=== PATIENT | female | born 1935 | race Two or more races ===

== ENCOUNTER 2017-05-28 13:31 | Outpatient (CLI) | payer OTHER ==
[~2017-05-28 13:31] MED LIST: AVAPRO300 MG; CATAPRES0.2 MG; HYZAAR 100/25 T1 TAB
== END 2017-05-28 13:53 | disposition home or self-care (01) ==
LOC: RAD 501 13:31
DX: Z76.89 Persons encountering health services in other specified circumstances (principal); M17.0 Bilateral primary osteoarthritis of knee; M79.651 Pain in right thigh; M79.604 Pain in right leg

== ENCOUNTER 2017-07-29 12:44 | Outpatient (CLI) | payer OTHER | END 2017-07-29 12:53 | disposition home or self-care (01) | LOC: RAD → LAB 12:44 | DX: I10 Essential (primary) hypertension (principal); D64.89 Other specified anemias; N39.0 Urinary tract infection, site not specified; R82.79 Other abnormal findings on microbiological examination of urine; E78.2 Mixed hyperlipidemia; E03.8 Other specified hypothyroidism; E55.9 Vitamin D deficiency, unspecified; Z13.29 Encounter for screening for other suspected endocrine disorder ==

== ENCOUNTER 2017-09-10 14:22 | Outpatient (CLI) | payer OTHER | END 2017-09-10 14:32 | disposition home or self-care (01) | LOC: RAD 501 14:22 | DX: M17.11 Unilateral primary osteoarthritis, right knee (principal) ==

== ENCOUNTER 2018-10-18 10:20 | Inpatient (IN) | payer OTHER ==
[~2018-10-18] VITALS: Ht 157.5 cm; Wt 99.8 kg
== END 2018-10-24 19:24 | disposition home or self-care (01) | DRG 699 ==
LOC: ER 10:20 → SURH 15:23 → SEC-K 15:23 → SURH 18:09
PROVIDERS: ADMIT Internal Medicine
PROC: BW21ZZZ Computerized Tomography (CT Scan) of Abdomen and Pelvis (ICD-10-PCS; principal; 2018-10-18)
PROC: 4A12X4Z Monitoring of Cardiac Electrical Activity, External Approach (ICD-10-PCS; 2018-10-19)
PROC: B24DZZZ Ultrasonography of Pediatric Heart (ICD-10-PCS; 2018-10-19)
PROC: 02HV33Z Insertion of Infusion Device into Superior Vena Cava, Percutaneous Approach (ICD-10-PCS; 2018-10-20)
PROC: BB24ZZZ Computerized Tomography (CT Scan) of Bilateral Lungs (ICD-10-PCS; 2018-10-21)
PROC: 0GBG3ZX Excision of Left Thyroid Gland Lobe, Percutaneous Approach, Diagnostic (ICD-10-PCS; 2018-10-22)
DX: N32.1 Vesicointestinal fistula (principal); K57.32 Diverticulitis of large intestine without perforation or abscess without bleeding; N39.0 Urinary tract infection, site not specified; E44.0 Moderate protein-calorie malnutrition; I10 Essential (primary) hypertension; E04.8 Other specified nontoxic goiter; E03.8 Other specified hypothyroidism; E86.0 Dehydration; E87.8 Other disorders of electrolyte and fluid balance, not elsewhere classified; R10.32 Left lower quadrant pain; Z88.0 Allergy status to penicillin; I45.19 Other right bundle-branch block; I08.2 Rheumatic disorders of both aortic and tricuspid valves

== ENCOUNTER 2018-11-21 17:12 | Emergency (ER) | payer OTHER ==
[~2018-11-21] VITALS: Ht 162.6 cm; Wt 95.3 kg
[2018-11-21] MEDS ORDERED: SYNTHROID112 MCG PO (17:46)
[2018-11-21] MEDS ORDERED: PLAVIX75 MG PO (17:46)
[2018-11-21] MEDS ORDERED: ZOCOR20 MG PO (17:47)
[2018-11-21] MEDS ORDERED: ACTONEL150 MG PO (17:47)
== END 2018-11-21 22:43 | disposition home or self-care (01) ==
LOC: ER 17:12
DX: I16.0 Hypertensive urgency (principal); I10 Essential (primary) hypertension; F41.8 Other specified anxiety disorders

== ENCOUNTER → 2019-09-24 | Outpatient (CLI) | payer OTHER ==
[~2019-09-24] MED LIST changes: +ACTONEL150 MG PO; +ADALAT CC30 MG PO; +ATACAND32 MG PO; +PLAVIX75 MG PO; +SYNTHROID112 MCG PO; +ZOCOR20 MG PO
== END | disposition home or self-care (01) ==
LOC: TOM 09:54
PROVIDERS: ATTEND Internal Medicine
DX: K57.11 Diverticulosis of small intestine without perforation or abscess with bleeding (principal)

== ENCOUNTER 2019-09-30 07:15 | Day surgery (SDC) | payer OTHER | END 2019-09-30 16:00 | disposition home or self-care (01) | LOC: CIR.AMB 07:15 | PROVIDERS: ATTEND Urology | DX: N13.1 Hydronephrosis with ureteral stricture, not elsewhere classified (principal); Z20.828 Contact with and (suspected) exposure to other viral communicable diseases ==

== ENCOUNTER → 2019-10-09 | Outpatient (CLI) | payer OTHER | END | disposition home or self-care (01) | LOC: RAD 10:54 | PROVIDERS: ATTEND Urology | DX: N13.1 Hydronephrosis with ureteral stricture, not elsewhere classified (principal) ==

== ENCOUNTER 2019-12-01 10:00 | Day surgery (SDC) | payer OTHER | END 2019-12-01 15:50 | disposition home or self-care (01) | LOC: AMB-ENDOS 10:00 | PROVIDERS: ATTEND Surgery | DX: K62.89 Other specified diseases of anus and rectum (principal); Z20.828 Contact with and (suspected) exposure to other viral communicable diseases; K64.8 Other hemorrhoids ==

== ENCOUNTER → 2019-12-22 | Outpatient (CLI) | payer OTHER ==
[~2019-12-22] MED LIST changes: +ATACAND16 MG PO; +CARDURA XL4 MG PO; +CARDURA1 MG PO; +CARVEDILOL12.5 MG; +NIFEDIPINE20 MG PO; +SIMVASTATIN20 MG PO; +TOPROL XL25 M1 PO
== END | disposition home or self-care (01) ==
LOC: TOM 10:23
PROVIDERS: ATTEND Surgery
DX: K80.80 Other cholelithiasis without obstruction (principal); R19.4 Change in bowel habit; K57.20 Diverticulitis of large intestine with perforation and abscess without bleeding; R10.32 Left lower quadrant pain

== ENCOUNTER 2019-12-23 16:25 | Inpatient (IN) | payer OTHER ==
[~2019-12-23] VITALS: Ht 162.6 cm; Wt 90.7 kg
[~2019-12-23 16:25] MED LIST changes: -ATACAND16 MG PO; -CARDURA XL4 MG PO; -CARDURA1 MG PO; -CARVEDILOL12.5 MG; -NIFEDIPINE20 MG PO; -SIMVASTATIN20 MG PO; -TOPROL XL25 M1 PO
[2019-12-23] MEDS ORDERED: CARVEDILOL12.5 MG (16:52)
[2019-12-23] MEDS ORDERED: CARDURA1 MG PO (16:52)
[2019-12-23] MEDS ORDERED: ATACAND16 MG PO (16:52)
[2019-12-23] MEDS ORDERED: CARDURA XL4 MG PO (16:52)
[2019-12-23] MEDS ORDERED: SIMVASTATIN20 MG PO (16:53)
[2019-12-23] MEDS ORDERED: NIFEDIPINE20 MG PO (16:53)
[2019-12-23] MEDS ORDERED: PLAVIX75 MG PO (16:54)
[2019-12-23] MEDS ORDERED: TOPROL XL25 M1 PO (16:55)
--- NOTE | 2019-12-23 16:56 | NUR ---
SE RECIBE PACIENTE ALERTA, ORIENTADA X 3 ESFERAS REFIERE TENER DOLOR ABDOMINAL, HX. DIVERTICULOS, PTE. DR. IMELDA HARRIS. SE UBICA EN AREA DE OBSERVACION LADYSMITH # 10 CON BARRANDAS ELEVADAS A NIVEL MAS BAJO. SE ORIENTA DE NECESITAR AYUDA NOTIFICAR A PERSONAL.
--- NOTE | 2019-12-23 18:25 | NUR ---
EVALUA PTE. SE ORIENTA A PTE SOBRE TX MEDICO. PTE REFIERE COMPRENDER SE REALIZAN MUESTRAS DE LABORATORIO BAJO MEDIDAS ASEPTICAS. SE ADMINISTRAN MEDICAMENTOS SAY ORDEN MEDICA.
[2020-01-08] MEDS ORDERED: FLAGYL500MG PO (09:57)
[2020-01-14] MEDS ORDERED: LOSARTAN POTASS50 MG PO (17:21)
[2020-01-14] MEDS ORDERED: DOXAZOSIN MESYLA4 MG PO (17:21)
== END 2020-01-08 12:20 | disposition home or self-care (01) | DRG 758 ==
LOC: ER 16:25 → SEC-K 21:52 → MEDJ 21:52 → SURH 12-25 15:53
PROVIDERS: ADMIT Internal Medicine; ATTEND Internal Medicine
PROC: 02HV33Z Insertion of Infusion Device into Superior Vena Cava, Percutaneous Approach (ICD-10-PCS; 2019-12-24)
PROC: BW41ZZZ Ultrasonography of Abdomen and Pelvis (ICD-10-PCS; 2019-12-30)
PROC: 0W9J30Z Drainage of Pelvic Cavity with Drainage Device, Percutaneous Approach (ICD-10-PCS; principal; 2020-01-01)
DX: N73.8 Other specified female pelvic inflammatory diseases (principal); K57.32 Diverticulitis of large intestine without perforation or abscess without bleeding; N32.1 Vesicointestinal fistula; N39.0 Urinary tract infection, site not specified; Z20.828 Contact with and (suspected) exposure to other viral communicable diseases; F41.8 Other specified anxiety disorders; E03.9 Hypothyroidism, unspecified; D50.0 Iron deficiency anemia secondary to blood loss (chronic)

== ENCOUNTER → 2020-01-27 | Outpatient (CLI) | payer OTHER ==
[~2020-01-27] MED LIST changes: +ATACAND16 MG PO; +CARDURA XL4 MG PO; +CARDURA1 MG PO; +CARVEDILOL12.5 MG; +DOXAZOSIN MESYLA4 MG PO; +FLAGYL500MG PO; +LOSARTAN POTASS50 MG PO; +NIFEDIPINE20 MG PO; +SIMVASTATIN20 MG PO; +TOPROL XL25 M1 PO
== END | disposition home or self-care (01) ==
LOC: TOM 01-26 08:37
PROVIDERS: ATTEND Internal Medicine
DX: K57.90 Diverticulosis of intestine, part unspecified, without perforation or abscess without bleeding (principal); K57.20 Diverticulitis of large intestine with perforation and abscess without bleeding; N13.39 Other hydronephrosis
CPT/HCPCS: 74177; Q9965

== ENCOUNTER 2020-05-17 13:10 | Outpatient (CLI) | payer OTHER | END 2020-05-17 18:50 | disposition home or self-care (01) | LOC: LAB 13:10 | PROVIDERS: ATTEND Urology | DX: N30.10 Interstitial cystitis (chronic) without hematuria (principal); B96.89 Other specified bacterial agents as the cause of diseases classified elsewhere ==

== ENCOUNTER → 2020-05-17 | Outpatient (CLI) | payer OTHER | END | disposition home or self-care (01) | LOC: TOM 13:12 | PROVIDERS: ATTEND Urology | DX: N13.1 Hydronephrosis with ureteral stricture, not elsewhere classified (principal) ==

== ENCOUNTER 2020-06-01 13:42 | Outpatient (CLI) | payer OTHER | END 2020-06-01 16:20 | disposition home or self-care (01) | LOC: LAB 13:42 | PROVIDERS: ATTEND Urology | DX: N30.00 Acute cystitis without hematuria (principal) ==

== ENCOUNTER 2020-06-07 16:02 | Outpatient (CLI) | payer OTHER | END 2020-06-07 16:20 | disposition home or self-care (01) | LOC: LAB 16:02 | PROVIDERS: ATTEND Urology | DX: N39.8 Other specified disorders of urinary system (principal) ==

== ENCOUNTER 2020-06-13 08:50 | Outpatient (CLI) | payer OTHER | END 2020-06-13 16:38 | disposition home or self-care (01) | LOC: LAB 08:50 | PROVIDERS: ATTEND Urology | DX: N30.00 Acute cystitis without hematuria (principal) ==

== ENCOUNTER 2020-06-15 08:10 | Outpatient (CLI) | payer OTHER | END 2020-06-15 15:00 | disposition home or self-care (01) | LOC: LAB 08:10 | PROVIDERS: ATTEND Urology | DX: N30.00 Acute cystitis without hematuria (principal) ==

== ENCOUNTER → 2020-06-17 | Outpatient (CLI) | payer OTHER | END | disposition home or self-care (01) | LOC: LAB 08:33 | PROVIDERS: ATTEND Urology | DX: N30.10 Interstitial cystitis (chronic) without hematuria (principal) ==

== ENCOUNTER 2020-06-20 10:00 | Outpatient (CLI) | payer OTHER | END 2020-06-20 15:00 | disposition home or self-care (01) | LOC: LAB 10:00 | PROVIDERS: ATTEND Urology | DX: N18.9 Chronic kidney disease, unspecified (principal); Z16.24 Resistance to multiple antibiotics ==

== ENCOUNTER 2020-06-21 14:58 | Outpatient (CLI) | payer OTHER | END 2020-06-21 15:00 | disposition home or self-care (01) | LOC: LAB 14:58 | PROVIDERS: ATTEND Urology | DX: N30.00 Acute cystitis without hematuria (principal) ==

== ENCOUNTER → 2020-07-20 | Outpatient (CLI) | payer OTHER | END | disposition home or self-care (01) | LOC: SONOGRAMA 06:56 | PROVIDERS: ATTEND Urology | DX: N13.1 Hydronephrosis with ureteral stricture, not elsewhere classified (principal); N39.0 Urinary tract infection, site not specified ==

== ENCOUNTER → 2020-07-22 | Outpatient (CLI) | payer OTHER | END | disposition home or self-care (01) | LOC: TOM 06:30 | PROVIDERS: ATTEND Urology | DX: N13.1 Hydronephrosis with ureteral stricture, not elsewhere classified (principal); N39.0 Urinary tract infection, site not specified | CPT/HCPCS: 74178; Q9965 ==

== ENCOUNTER 2020-08-10 07:19 | Outpatient (CLI) | payer OTHER ==
[2020-10-06] MEDS ORDERED: LEXAPRO5 MG PO (12:04)
[2020-10-06] MEDS ORDERED: NIFEDIPINE20 MG PO (12:04)
== END 2020-08-10 15:00 | disposition home or self-care (01) ==
LOC: LAB 07:19
PROVIDERS: ATTEND Urology
DX: N30.00 Acute cystitis without hematuria (principal); N13.1 Hydronephrosis with ureteral stricture, not elsewhere classified

== ENCOUNTER 2020-08-15 13:23 | Outpatient (CLI) | payer OTHER ==
[2020-10-06] MEDS ORDERED: NIFEDIPINE20 MG PO (12:04)
[2020-10-06] MEDS ORDERED: LEXAPRO5 MG PO (12:04)
== END 2020-08-15 15:00 | disposition home or self-care (01) ==
LOC: LAB 13:23
PROVIDERS: ATTEND Urology
DX: N30.00 Acute cystitis without hematuria (principal)

== ENCOUNTER → 2020-08-17 | Outpatient (CLI) | payer OTHER | END | disposition home or self-care (01) | LOC: SONOGRAMA 09:11 | PROVIDERS: ATTEND Urology | DX: N13.1 Hydronephrosis with ureteral stricture, not elsewhere classified (principal); N39.0 Urinary tract infection, site not specified ==

== ENCOUNTER → 2020-09-01 | Outpatient (CLI) | payer OTHER | END | disposition home or self-care (01) | LOC: NUCLEAR 13:00 | PROVIDERS: ATTEND Urology | DX: N39.0 Urinary tract infection, site not specified (principal); N13.1 Hydronephrosis with ureteral stricture, not elsewhere classified | CPT/HCPCS: 78707; A9562; J1940 ==

== ENCOUNTER 2020-09-07 10:56 | Outpatient (CLI) | payer OTHER ==
[2020-10-06] MEDS ORDERED: LEXAPRO5 MG PO (12:04)
[2020-10-06] MEDS ORDERED: NIFEDIPINE20 MG PO (12:04)
== END 2020-09-07 15:20 | disposition home or self-care (01) ==
LOC: RAD 10:56
PROVIDERS: ATTEND Urology
DX: I11.0 Hypertensive heart disease with heart failure (principal)

== ENCOUNTER 2020-09-07 14:47 | Outpatient (CLI) | payer OTHER ==
[2020-10-06] MEDS ORDERED: LEXAPRO5 MG PO (12:04)
[2020-10-06] MEDS ORDERED: NIFEDIPINE20 MG PO (12:04)
== END 2020-09-07 18:00 | disposition home or self-care (01) ==
LOC: LAB 14:47
PROVIDERS: ATTEND Urology
DX: I10 Essential (primary) hypertension (principal)

== ENCOUNTER 2020-10-12 11:50 | Day surgery (SDC) | payer OTHER ==
[~2020-10-12 11:50] MED LIST changes: +LEXAPRO5 MG PO
== END 2020-10-12 19:30 | disposition home or self-care (01) ==
LOC: CIR.AMB 11:50
PROVIDERS: ATTEND Urology
DX: N13.1 Hydronephrosis with ureteral stricture, not elsewhere classified (principal); Z20.822 Contact with and (suspected) exposure to COVID-19

== ENCOUNTER → 2020-10-18 15:24 | Outpatient (CLI) | payer OTHER | END | disposition home or self-care (01) | LOC: RAD 15:24 | PROVIDERS: ATTEND Urology | DX: N20.0 Calculus of kidney (principal) ==

== ENCOUNTER 2020-11-08 11:33 | Outpatient (CLI) | payer OTHER | END 2020-11-08 16:49 | disposition home or self-care (01) | LOC: LAB 11:33 | PROVIDERS: ATTEND Urology | DX: N30.00 Acute cystitis without hematuria (principal); B96.29 Other Escherichia coli [E. coli] as the cause of diseases classified elsewhere; D64.89 Other specified anemias; R10.84 Generalized abdominal pain; E03.8 Other specified hypothyroidism; E78.49 Other hyperlipidemia; E55.9 Vitamin D deficiency, unspecified; R80.8 Other proteinuria; E11.9 Type 2 diabetes mellitus without complications; I10 Essential (primary) hypertension ==

== ENCOUNTER → 2020-11-23 10:59 | Outpatient (CLI) | payer OTHER | END | disposition home or self-care (01) | LOC: LAB 10:59 | PROVIDERS: ATTEND Urology | DX: N30.00 Acute cystitis without hematuria (principal) ==

== ENCOUNTER 2020-12-06 08:00 | Outpatient (CLI) | payer OTHER | END 2020-12-06 08:30 | disposition home or self-care (01) | LOC: PPH VACUNA 08:00 | PROVIDERS: ATTEND Emergency Medicine Pediatric Emergency Medicine | DX: Z23 Encounter for immunization (principal) ==

== ENCOUNTER → 2020-12-15 08:13 | Outpatient (CLI) | payer OTHER | END | disposition home or self-care (01) | LOC: LAB 08:13 | PROVIDERS: ATTEND Urology | DX: N39.0 Urinary tract infection, site not specified (principal); N13.1 Hydronephrosis with ureteral stricture, not elsewhere classified ==

== ENCOUNTER → 2021-01-02 12:38 | Outpatient (CLI) | payer OTHER | END | disposition home or self-care (01) | LOC: LAB 12:38 | PROVIDERS: ATTEND Urology | DX: N30.00 Acute cystitis without hematuria (principal) ==

== ENCOUNTER 2021-01-06 08:03 | Outpatient (CLI) | payer OTHER | END 2021-01-06 15:00 | disposition home or self-care (01) | LOC: LAB 08:03 | PROVIDERS: ATTEND Internal Medicine Cardiovascular Disease | DX: D64.89 Other specified anemias (principal); N39.0 Urinary tract infection, site not specified; R10.84 Generalized abdominal pain; E55.9 Vitamin D deficiency, unspecified; R73.09 Other abnormal glucose; I10 Essential (primary) hypertension; I48.0 Paroxysmal atrial fibrillation; E66.8 Other obesity ==

== ENCOUNTER → 2021-02-08 10:11 | Outpatient (CLI) | payer OTHER | END | disposition home or self-care (01) | LOC: LAB 10:11 | PROVIDERS: ATTEND Urology | DX: N30.00 Acute cystitis without hematuria (principal) ==

== ENCOUNTER → 2021-02-14 13:07 | Outpatient (CLI) | payer OTHER | END | disposition home or self-care (01) | LOC: LAB 13:07 | PROVIDERS: ATTEND Urology | DX: N30.00 Acute cystitis without hematuria (principal) ==

== ENCOUNTER 2021-04-11 08:04 | Outpatient (CLI) | payer OTHER | END 2021-04-11 08:05 | disposition home or self-care (01) | LOC: LAB 08:04 | PROVIDERS: ATTEND Internal Medicine Cardiovascular Disease | DX: E78.5 Hyperlipidemia, unspecified (principal); D64.9 Anemia, unspecified; R10.9 Unspecified abdominal pain ==

== ENCOUNTER 2021-04-13 13:00 | Outpatient (CLI) | payer OTHER | END 2021-04-13 13:15 | disposition home or self-care (01) | LOC: RAD 13:00 | PROVIDERS: ATTEND Orthopaedic Surgery | DX: M25.661 Stiffness of right knee, not elsewhere classified (principal) ==

== ENCOUNTER 2021-05-18 12:10 | Outpatient (CLI) | payer OTHER | END 2021-05-18 12:14 | disposition home or self-care (01) | LOC: NUCLEAR 12:10 | PROVIDERS: ATTEND Orthopaedic Surgery | DX: M81.0 Age-related osteoporosis without current pathological fracture (principal) ==

== ENCOUNTER 2021-05-19 11:06 | Outpatient (CLI) | payer OTHER | END 2021-05-19 11:20 | disposition home or self-care (01) | LOC: SONOGRAMA 11:06 | PROVIDERS: ATTEND Urology | DX: N20.0 Calculus of kidney (principal) ==

== ENCOUNTER → 2021-05-19 12:05 | Outpatient (CLI) | payer OTHER | END | disposition home or self-care (01) | LOC: LAB 12:05 | PROVIDERS: ATTEND Radiology Diagnostic Radiology | DX: N20.0 Calculus of kidney (principal) ==

== ENCOUNTER 2021-05-29 09:20 | Inpatient (IN) | payer OTHER ==
[~2021-05-29] VITALS: Ht 160 cm; Wt 104.3 kg
[2021-05-29] MEDS ORDERED: ATACAND32 MG (09:53)
[2021-05-29] MEDS ORDERED: CARDURA XL4 MG PO (09:54)
[2021-05-29] MEDS ORDERED: LEXAPRO20 MG (09:54)
[2021-05-29] MEDS ORDERED: TRANXENE T-TAB7.5 MG (09:55)
[2021-06-03] MEDS ORDERED: METOPROLOL TART50 MG PO (16:32)
[2021-06-03] MEDS ORDERED: AMLODIPINE BESY10 MG PO (16:32)
[2021-06-03] MEDS ORDERED: HYDRALAZINE HCL25 MG PO (16:32)
[2021-06-03] MEDS ORDERED: ATACAND32 MG PO (16:32)
[2021-06-03] MEDS ORDERED: ELIQUIS5 MG PO (16:32)
[2021-06-03] MEDS ORDERED: SIMVASTATIN20 MG PO (16:32)
== END 2021-06-03 23:21 | disposition home or self-care (01) | DRG 305 ==
LOC: ER 09:20 → ICU-2 21:10 → ICU 05-31 12:05 → SURG 06-02 13:11
PROVIDERS: ADMIT Internal Medicine; ATTEND Internal Medicine
PROC: 4A12X4Z Monitoring of Cardiac Electrical Activity, External Approach (ICD-10-PCS; principal; 2021-05-29)
PROC: B24BYZZ Ultrasonography of Heart with Aorta using Other Contrast (ICD-10-PCS; 2021-05-29)
DX: I11.9 Hypertensive heart disease without heart failure (principal); I45.2 Bifascicular block; Z68.41 Body mass index [BMI] 40.0-44.9, adult; I48.0 Paroxysmal atrial fibrillation; F41.8 Other specified anxiety disorders; E66.09 Other obesity due to excess calories

== ENCOUNTER → 2021-06-21 08:13 | Outpatient (CLI) | payer OTHER ==
[~2021-06-21 08:13] MED LIST changes: +AMLODIPINE BESY10 MG PO; +ATACAND32 MG; +ELIQUIS5 MG PO; +HYDRALAZINE HCL25 MG PO; +LEXAPRO20 MG; +METOPROLOL TART50 MG PO; +TRANXENE T-TAB7.5 MG
== END | disposition home or self-care (01) ==
LOC: LAB 08:13
PROVIDERS: ATTEND Internal Medicine Cardiovascular Disease
DX: D64.9 Anemia, unspecified (principal); N39.0 Urinary tract infection, site not specified; R10.9 Unspecified abdominal pain; E78.5 Hyperlipidemia, unspecified; E55.9 Vitamin D deficiency, unspecified; E11.9 Type 2 diabetes mellitus without complications

== ENCOUNTER 2021-06-22 16:17 | Outpatient (CLI) | payer OTHER | END 2021-06-22 16:30 | disposition home or self-care (01) | LOC: RAD 16:17 | PROVIDERS: ATTEND Orthopaedic Surgery | DX: M17.0 Bilateral primary osteoarthritis of knee (principal) ==

== ENCOUNTER 2021-06-30 14:05 | Outpatient (CLI) | payer OTHER | END 2021-06-30 15:00 | disposition home or self-care (01) | LOC: LAB 14:05 | PROVIDERS: ATTEND Internal Medicine Cardiovascular Disease | DX: N39.0 Urinary tract infection, site not specified (principal) ==

== ENCOUNTER 2021-10-18 09:59 | Outpatient (CLI) | payer OTHER | END 2021-10-18 15:19 | disposition home or self-care (01) | LOC: RAD 09:59 | PROVIDERS: ATTEND Orthopaedic Surgery | DX: M17.0 Bilateral primary osteoarthritis of knee (principal) ==

== ENCOUNTER 2021-10-26 13:25 | Outpatient (CLI) | payer OTHER | END 2021-10-26 13:27 | disposition home or self-care (01) | LOC: LAB 13:25 | PROVIDERS: ATTEND Urology | DX: N30.10 Interstitial cystitis (chronic) without hematuria (principal) ==

== ENCOUNTER 2021-11-21 11:34 | Outpatient (CLI) | payer OTHER | END 2021-11-21 12:00 | disposition home or self-care (01) | LOC: RAD 11:34 | PROVIDERS: ATTEND Orthopaedic Surgery | DX: M25.551 Pain in right hip (principal); M25.552 Pain in left hip ==

== ENCOUNTER 2021-12-01 11:54 | Outpatient (CLI) | payer OTHER ==
[2021-12-01] MEDS ORDERED: TOPROL XL100 M1 PO (13:26)
[2021-12-01] MEDS ORDERED: CATAFLAN (13:29)
[2021-12-01] MEDS ORDERED: ALDACTONE25 MG PO (13:29)
== END 2021-12-01 15:51 | disposition home or self-care (01) ==
LOC: TOM 11:54
PROVIDERS: ATTEND Radiology Diagnostic Radiology
DX: R10.32 Left lower quadrant pain (principal)
CPT/HCPCS: 74177; Q9965

== ENCOUNTER 2021-12-01 13:18 | Inpatient (IN) | payer OTHER ==
[~2021-12-01] VITALS: Ht 162.6 cm; Wt 90.7 kg
--- NOTE | 2021-12-01 13:23 | NUR ---
SE RECIBE PTE ALERTA Y ORIENTADA X3,REFIERE QUE LA REFIERE POR DIVERTICULITIS,PTE REFIERE LLEVAR JAJA SEMANA CON DOLOR ABDOMINAL.
[2021-12-01] MEDS ORDERED: TOPROL XL100 M1 PO (13:26)
[2021-12-01] MEDS ORDERED: ALDACTONE25 MG PO (13:29)
[2021-12-01] MEDS ORDERED: CATAFLAN (13:29)
--- NOTE | 2021-12-01 14:19 | NUR ---
PACIENTE EVALUADO POR DR MOCK QUIEN ORDENA TX MEDICO, RN DURÁN LE ORIENTA A PACIENTE SOBRE EL MISMO Y VERBALIZA ENTENDER. LE COLECTA MUESTRS DE LABORAOTORIO Y LE CANALIZA BAJO MEDIDAS ASEPTICAS, LE ADMINISTRA MED SAY ORDEN.
[2021-12-04] MEDS ORDERED: DICLOFENAC POTA50 MG (16:02)
[2021-12-04] MEDS ORDERED: OXYBUTYNIN CHLO10 MG (16:02)
[2021-12-04] MEDS ORDERED: GABAPENTIN100 M2 (16:02)
[2021-12-04] MEDS ORDERED: HYDRALAZINE HCL25 MG (16:03)
[2021-12-15] MEDS ORDERED: AMOX1TAB5 PO (13:23)
[2021-12-15] MEDS ORDERED: METRONIDAZOLE500 MG PO (13:24)
[2021-12-15] MEDS ORDERED: CEFDINIR300 MG PO (14:48)
== END 2021-12-15 16:47 | disposition home or self-care (01) | DRG 391 ==
LOC: ER 13:18 → MEDJ 12-02 03:27
PROVIDERS: ADMIT Internal Medicine; ATTEND Internal Medicine
PROC: BW2110Z Computerized Tomography (CT Scan) of Abdomen and Pelvis using Low Osmolar Contrast, Unenhanced and Enhanced (ICD-10-PCS; principal; 2021-12-11)
DX: K57.20 Diverticulitis of large intestine with perforation and abscess without bleeding (principal); K65.1 Peritoneal abscess; N13.6 Pyonephrosis; E03.8 Other specified hypothyroidism; B96.20 Unspecified Escherichia coli [E. coli] as the cause of diseases classified elsewhere; I11.9 Hypertensive heart disease without heart failure

== ENCOUNTER → 2022-03-12 06:51 | Outpatient (CLI) | payer OTHER ==
[~2022-03-12 06:51] MED LIST changes: +ALDACTONE25 MG PO; +AMOX1TAB5 PO; +CATAFLAN; +CEFDINIR300 MG PO; +DICLOFENAC POTA50 MG; +GABAPENTIN100 M2; +HYDRALAZINE HCL25 MG; +METRONIDAZOLE500 MG PO; +OXYBUTYNIN CHLO10 MG; +TOPROL XL100 M1 PO
== END | disposition home or self-care (01) ==
LOC: LAB 06:51
PROVIDERS: ATTEND Orthopaedic Surgery
DX: D64.9 Anemia, unspecified (principal); E88.9 Metabolic disorder, unspecified; D68.8 Other specified coagulation defects; N39.0 Urinary tract infection, site not specified; A49.02 Methicillin resistant Staphylococcus aureus infection, unspecified site; E11.9 Type 2 diabetes mellitus without complications; I10 Essential (primary) hypertension; I49.9 Cardiac arrhythmia, unspecified; Z76.89 Persons encountering health services in other specified circumstances

== ENCOUNTER 2022-03-12 10:03 | Outpatient (CLI) | payer OTHER | END 2022-03-12 10:05 | disposition home or self-care (01) | LOC: TOM 10:03 | PROVIDERS: ATTEND Specialist | DX: K57.92 Diverticulitis of intestine, part unspecified, without perforation or abscess without bleeding (principal) ==

== ENCOUNTER 2022-04-06 07:42 | Inpatient (IN) | payer OTHER ==
[~2022-04-06] VITALS: Ht 160 cm; Wt 92.5 kg
--- NOTE | 2022-04-06 07:56 | NUR ---
SE RECIBE PACIENTE FEMENINA LA CUAL REFIERE DOLOR ABDOMINAL DESDE EL SOCORRO Y REFIERE ANTERIORMENTE DIVERTICULITIS. SE MONITOREAN S/V Y SE UBICA EN SHAHRAM 6
--- NOTE | 2022-04-06 08:58 | NUR ---
PACIENTE EVALUADO POR EL DR. MOCK QUIEN ORDENA TRATAMIENTO. SE REALIZAN MUESTRAS BAJO MEDIDAS ASEPTICAS Y SE ADMINISTRAN MEDICAMENTOS SAY ORDEN MEDICA. SE ORIENTA A PACIENTE SOBRE CT PO. SE HACE ENTREGA DE ENVASE DE ORINA
[2022-04-20] MEDS ORDERED: AMLODIPINE BESYL5 MG PO (14:36)
[2022-04-20] MEDS ORDERED: SIMVASTATIN20 MG PO (14:37)
[2022-04-20] MEDS ORDERED: TOPROL XL100 M1 PO (14:37)
[2022-04-20] MEDS ORDERED: SPIRONOLACTONE25 MG PO (14:38)
[2022-04-20] MEDS ORDERED: METRONIDAZOLE500 MG PO (14:40)
[2022-04-20] MEDS ORDERED: DOXAZOSIN MESYLA4 MG PO (14:43)
== END 2022-04-20 16:34 | disposition home or self-care (01) | DRG 660 ==
LOC: ER 07:42 → MEDJ 18:19 → MEDI 18:19 → SURG 18:19 → MEDJ 19:55 → SURG 04-10 16:56
PROVIDERS: Urology; ADMIT Internal Medicine; ATTEND Internal Medicine
PROC: 05HY33Z Insertion of Infusion Device into Upper Vein, Percutaneous Approach (ICD-10-PCS; 2022-04-08)
PROC: 0D9N30Z Drainage of Sigmoid Colon with Drainage Device, Percutaneous Approach (ICD-10-PCS; 2022-04-09)
PROC: BT1FZZZ Fluoroscopy of Left Kidney, Ureter and Bladder (ICD-10-PCS; 2022-04-11)
PROC: BT1BZZZ Fluoroscopy of Bladder and Urethra (ICD-10-PCS; 2022-04-11)
PROC: 0T748DZ Dilation of Left Kidney Pelvis with Intraluminal Device, Via Natural or Artificial Opening Endoscopic (ICD-10-PCS; principal; 2022-04-11 13:30)
DX: N32.1 Vesicointestinal fistula (principal); K63.0 Abscess of intestine; N13.6 Pyonephrosis; Z16.23 Resistance to quinolones and fluoroquinolones; N39.0 Urinary tract infection, site not specified; N17.9 Acute kidney failure, unspecified; B96.20 Unspecified Escherichia coli [E. coli] as the cause of diseases classified elsewhere; D63.8 Anemia in other chronic diseases classified elsewhere; E86.0 Dehydration; I10 Essential (primary) hypertension; E78.5 Hyperlipidemia, unspecified; E03.8 Other specified hypothyroidism

== ENCOUNTER 2022-05-14 08:56 | Outpatient (CLI) | payer OTHER ==
[~2022-05-14 08:56] MED LIST changes: +AMLODIPINE BESYL5 MG PO; +SPIRONOLACTONE25 MG PO
== END 2022-05-14 14:57 | disposition home or self-care (01) ==
LOC: LAB 08:56
PROVIDERS: ATTEND Orthopaedic Surgery
DX: D64.9 Anemia, unspecified (principal); E88.9 Metabolic disorder, unspecified; D68.8 Other specified coagulation defects; N39.0 Urinary tract infection, site not specified; E11.9 Type 2 diabetes mellitus without complications

== ENCOUNTER 2022-05-17 13:08 | Outpatient (CLI) | payer OTHER | END 2022-05-17 13:10 | disposition home or self-care (01) | LOC: LAB 13:08 | PROVIDERS: ATTEND Internal Medicine Cardiovascular Disease | DX: N39.0 Urinary tract infection, site not specified (principal) ==

== ENCOUNTER 2022-07-17 11:50 | Inpatient (IN) | payer OTHER ==
[~2022-07-17] VITALS: Ht 162.6 cm; Wt 90.7 kg
[2022-07-18] MEDS ORDERED: ATACAND16 MG PO (11:01)
[2022-07-18] MEDS ORDERED: PLAVIX75 MG PO (11:01)
[2022-07-18] MEDS ORDERED: ZOCOR20 MG PO (11:01)
[2022-07-18] MEDS ORDERED: CLONAZEPAM1 MG PO (11:02)
[2022-07-18] MEDS ORDERED: LEXAPRO5 MG PO (11:02)
[2022-07-18] MEDS ORDERED: NIFEDIPINE20 MG PO (11:02)
[2022-07-25] MEDS ORDERED: AMLODIPINE BESYL5 MG (10:38)
[2022-07-25] MEDS ORDERED: ESCITALOPRAM OX10 MG (10:38)
[2022-07-25] MEDS ORDERED: HYDROCHLOROTHIA25 MG (10:39)
[2022-07-25] MEDS ORDERED: METOPROLOL SUC100 MG (10:39)
[2022-08-01] MEDS ORDERED: HYOSCYAMINE0.125 M1 SL (07:55)
[2022-08-01] MEDS ORDERED: PEPCID AC20 MG PO (07:56)
[2022-08-01] MEDS ORDERED: INTESTINEX680 M1 PO (07:56)
[2022-08-01] MEDS ORDERED: TRAM1TAB98 PO (07:56)
[2022-08-01] MEDS ORDERED: PYRIDIUM100 M1 PO (08:02)
== END 2022-08-01 11:56 | disposition home or self-care (01) | DRG 329 ==
LOC: SURH 07-23 08:30 → SURG 07-25 05:45 → O/R 07-25 05:45 → SURG 07-25 16:14
PROVIDERS: ADMIT Surgery; ATTEND Surgery
PROC: 0DBP4ZZ Excision of Rectum, Percutaneous Endoscopic Approach (ICD-10-PCS; 2022-07-25)
PROC: 0DQ84ZZ Repair Small Intestine, Percutaneous Endoscopic Approach (ICD-10-PCS; 2022-07-25)
PROC: 0TNB4ZZ Release Bladder, Percutaneous Endoscopic Approach (ICD-10-PCS; 2022-07-25)
PROC: 0DN84ZZ Release Small Intestine, Percutaneous Endoscopic Approach (ICD-10-PCS; 2022-07-25)
PROC: 0DJD8ZZ Inspection of Lower Intestinal Tract, Via Natural or Artificial Opening Endoscopic (ICD-10-PCS; 2022-07-25)
PROC: 0DTN4ZZ Resection of Sigmoid Colon, Percutaneous Endoscopic Approach (ICD-10-PCS; principal; 2022-07-25 07:00)
PROC: BT101ZZ Fluoroscopy of Bladder using Low Osmolar Contrast (ICD-10-PCS; 2022-07-31)
DX: K57.20 Diverticulitis of large intestine with perforation and abscess without bleeding (principal); K65.1 Peritoneal abscess; K91.71 Accidental puncture and laceration of a digestive system organ or structure during a digestive system procedure; N32.1 Vesicointestinal fistula; I48.20 Chronic atrial fibrillation, unspecified; N73.6 Female pelvic peritoneal adhesions (postinfective); N99.4 Postprocedural pelvic peritoneal adhesions; I10 Essential (primary) hypertension; E11.9 Type 2 diabetes mellitus without complications; E78.5 Hyperlipidemia, unspecified; E66.09 Other obesity due to excess calories

== ENCOUNTER 2022-07-17 15:41 | Outpatient (CLI) | payer OTHER ==
[2022-07-18] MEDS ORDERED: PLAVIX75 MG PO (11:01)
[2022-07-18] MEDS ORDERED: ATACAND16 MG PO (11:01)
[2022-07-18] MEDS ORDERED: ZOCOR20 MG PO (11:01)
[2022-07-18] MEDS ORDERED: CLONAZEPAM1 MG PO (11:02)
[2022-07-18] MEDS ORDERED: LEXAPRO5 MG PO (11:02)
[2022-07-18] MEDS ORDERED: NIFEDIPINE20 MG PO (11:02)
== END 2022-07-17 16:11 | disposition home or self-care (01) ==
LOC: LAB 15:41
PROVIDERS: ATTEND Urology
DX: N30.00 Acute cystitis without hematuria (principal)

== ENCOUNTER 2022-08-27 10:47 | Outpatient (CLI) | payer OTHER ==
[~2022-08-27 10:47] MED LIST changes: +AMLODIPINE BESYL5 MG; +CLONAZEPAM1 MG PO; +ESCITALOPRAM OX10 MG; +HYDROCHLOROTHIA25 MG; +HYOSCYAMINE0.125 M1 SL; +INTESTINEX680 M1 PO; +METOPROLOL SUC100 MG; +PEPCID AC20 MG PO; +PYRIDIUM100 M1 PO; +TRAM1TAB98 PO
== END 2022-08-27 23:00 | disposition home or self-care (01) ==
LOC: LAB 10:47
PROVIDERS: ATTEND Surgery
DX: N32.1 Vesicointestinal fistula (principal); N39.0 Urinary tract infection, site not specified

== ENCOUNTER 2022-10-03 13:04 | Outpatient (CLI) | payer OTHER | END 2022-10-03 13:06 | disposition home or self-care (01) | LOC: LAB 13:04 | PROVIDERS: ATTEND Urology | DX: N39.0 Urinary tract infection, site not specified (principal) ==

== ENCOUNTER 2022-10-08 07:52 | Outpatient (CLI) | payer OTHER | END 2022-10-08 07:58 | disposition home or self-care (01) | LOC: LAB 07:52 | PROVIDERS: ATTEND Urology | DX: I11.9 Hypertensive heart disease without heart failure (principal); E11.9 Type 2 diabetes mellitus without complications ==

== ENCOUNTER 2022-10-18 10:19 | Outpatient (CLI) | payer OTHER | END 2022-10-18 14:19 | disposition home or self-care (01) | LOC: LAB 10:19 | PROVIDERS: ATTEND Urology | DX: N39.0 Urinary tract infection, site not specified (principal); E83.52 Hypercalcemia ==

== ENCOUNTER 2022-11-14 07:59 | Outpatient (CLI) | payer OTHER | END 2022-11-14 08:00 | disposition home or self-care (01) | LOC: LAB 07:59 | PROVIDERS: ATTEND Urology | DX: I11.0 Hypertensive heart disease with heart failure (principal); Z88.0 Allergy status to penicillin ==

== ENCOUNTER → 2022-11-14 | Outpatient (CLI) | payer OTHER | END | disposition home or self-care (01) | LOC: SONOGRAMA 06:46 | PROVIDERS: ATTEND Urology | DX: N39.0 Urinary tract infection, site not specified (principal); R35.1 Nocturia ==

== ENCOUNTER 2022-11-16 08:34 | Outpatient (CLI) | payer OTHER | END 2022-11-16 08:36 | disposition home or self-care (01) | LOC: NUCLEAR 08:34 | PROVIDERS: ATTEND Urology | DX: E83.52 Hypercalcemia (principal) | CPT/HCPCS: 78072; A9500 ==

== ENCOUNTER 2022-11-22 10:33 | Outpatient (CLI) | payer OTHER ==
[2022-11-22 11:30] LABS: HEMATOCRIT 33.8 % (36.0-45.00); HEMOGLOBIN 11.4 g/dL (12.0-15.00); MEAN CELL VOLUME 84.8 fL (80.00-100.00); MEAN CORPUSCULAR HEMOGLOBIN 28.5 pg (27.00-32.0); MEAN CORPUSCULAR HGB CONC 33.6 g/dl (32.0-36.0); PLATELET COUNT 155 K/uL (150-450); RED BLOOD COUNT 3.99 M/uL (4.00-6.00); RED CELL DISTRIBUTION WIDTH 15.5 % (11.5-14.5)
[2022-11-22 11:58] LABS: ALBUMIN 3.5 gm/dL (3.4-5.0); BILIRUBIN TOTAL 0.4 mg/dL (0.3-1.2); CALCIUM 9.6 mg/dL (8.5-10.1); CREATININE SERUM 0.89 mg/dL (0.55-1.02); GFR 60.28; POTASSIUM 4.21 mEq/L (3.5-5.1); TOTAL PROTEIN 6.5 gm/dL (6.4-8.2)
== END 2022-11-22 12:26 | disposition home or self-care (01) ==
LOC: LAB 10:33
PROVIDERS: Urology; ATTEND Internal Medicine Cardiovascular Disease
DX: D64.9 Anemia, unspecified (principal); R10.9 Unspecified abdominal pain; E78.5 Hyperlipidemia, unspecified; E55.9 Vitamin D deficiency, unspecified; E11.9 Type 2 diabetes mellitus without complications

== ENCOUNTER → 2023-01-29 08:19 | Outpatient (CLI) | payer OTHER ==
[2023-01-29 14:24] LABS: HEMATOCRIT 39.2 % (36.0-45.00); HEMOGLOBIN 12.7 g/dL (12.0-15.00); MEAN CELL VOLUME 85.2 fL (80.00-100.00); MEAN CORPUSCULAR HEMOGLOBIN 27.6 pg (27.00-32.0); MEAN CORPUSCULAR HGB CONC 32.4 g/dl (32.0-36.0); PLATELET COUNT 162 K/uL (150-450); RED CELL DISTRIBUTION WIDTH 14.2 % (11.5-14.5)
[2023-01-29 14:48] LABS: ALBUMIN 3.5 gm/dL (3.4-5.0); BILIRUBIN TOTAL 0.52 mg/dL (0.3-1.2); CHOL HDL RATIO 2.1 (0-5.0); CREATININE SERUM 0.78 mg/dL (0.55-1.02); GFR 70.19; GLOBULINA 2.9 G/DL (2.4-3.5); POTASSIUM 3.93 mEq/L (3.5-5.1); TOTAL PROTEIN 6.4 gm/dL (6.4-8.2)
== END | disposition home or self-care (01) ==
LOC: LAB 08:19
PROVIDERS: ATTEND Internal Medicine Cardiovascular Disease
DX: D64.9 Anemia, unspecified (principal); R10.9 Unspecified abdominal pain; E78.5 Hyperlipidemia, unspecified; E59 Dietary selenium deficiency; E11.9 Type 2 diabetes mellitus without complications

== ENCOUNTER 2023-02-07 08:26 | Outpatient (CLI) | payer OTHER ==
[2023-02-07 12:47] LABS: PH,URINE 5.5 (5.0-8.0); URINE APPEARANCE Clear; URINE BILIRRUBIN Negative (NEGATIVE); URINE BLOOD Small; URINE COLOR Yellow; URINE GLUCOSE Negative (NEGATIVE); URINE LEUKOCYTE Negative; URINE NITRATE Negative; URINE PROTEIN Negative (NEGATIVE)
[2023-02-07 12:48] LABS: URINE BACTERIA 176.3 uL (0.0-1933); URINE EPITHELIAL CELLS 23.4 uL (0.0-38.8); URINE RBC 23.1 uL (0.0-20.8); URINE WBC 11.2 uL (0.0-23.2)
== END 2023-02-07 08:27 | disposition home or self-care (01) ==
LOC: LAB 08:26
PROVIDERS: ATTEND Urology
DX: E03.8 Other specified hypothyroidism (principal); I10 Essential (primary) hypertension; E78.01 Familial hypercholesterolemia

== ENCOUNTER 2023-05-01 10:19 | Outpatient (CLI) | payer OTHER ==
[2023-05-01 10:55] LABS: HEMATOCRIT 37.5 % (36.0-45.00); HEMOGLOBIN 12.4 g/dL (12.0-15.00); MEAN CELL VOLUME 85.9 fL (80.00-100.00); MEAN CORPUSCULAR HEMOGLOBIN 28.3 pg (27.00-32.0); PLATELET COUNT 131 K/uL (150-450); RED BLOOD COUNT 4.37 M/uL (4.00-6.00); RED CELL DISTRIBUTION WIDTH 14.4 % (11.5-14.5)
[2023-05-01 11:23] LABS: ALBUMIN 3.8 gm/dL (3.4-5.0); BILIRUBIN TOTAL 0.52 mg/dL (0.3-1.2); CALCIUM 10.3 mg/dL (8.5-10.1); CREATININE SERUM 0.87 mg/dL (0.55-1.02); GFR 61.88; GLOBULINA 2.8 G/DL (2.4-3.5); PHOSPHOROUS 3.3 mg/dL (2.5-4.9); POTASSIUM 4.18 mEq/L (3.5-5.1); TOTAL PROTEIN 6.6 gm/dL (6.4-8.2)
[2023-05-02 12:08] LABS: CALCIUM IONIZED 5.5 mg/dL (4.5-5.6)
== END 2023-05-01 11:00 | disposition home or self-care (01) ==
LOC: LAB 10:19
PROVIDERS: ATTEND Orthopaedic Surgery
DX: E55.9 Vitamin D deficiency, unspecified (principal); M85.9 Disorder of bone density and structure, unspecified; E56.1 Deficiency of vitamin K; E21.3 Hyperparathyroidism, unspecified; M81.8 Other osteoporosis without current pathological fracture

== ENCOUNTER 2023-05-14 12:11 | Outpatient (CLI) | payer OTHER | END 2023-05-17 15:23 | disposition home or self-care (01) | LOC: RAD 12:11 | PROVIDERS: ATTEND Orthopaedic Surgery | DX: M17.0 Bilateral primary osteoarthritis of knee (principal); R93.6 Abnormal findings on diagnostic imaging of limbs; Z76.89 Persons encountering health services in other specified circumstances ==

== ENCOUNTER 2023-05-20 08:16 | Outpatient (CLI) | payer OTHER ==
[2023-05-20 10:19] LABS: HEMATOCRIT 38.2 % (36.0-45.00); HEMOGLOBIN 12.7 g/dL (12.0-15.00); MEAN CELL VOLUME 86.3 fL (80.00-100.00); MEAN CORPUSCULAR HEMOGLOBIN 28.7 pg (27.00-32.0); MEAN CORPUSCULAR HGB CONC 33.3 g/dl (32.0-36.0); PLATELET COUNT 160 K/uL (150-450); RED BLOOD COUNT 4.42 M/uL (4.00-6.00); RED CELL DISTRIBUTION WIDTH 14.5 % (11.5-14.5)
[2023-05-20 10:35] LABS: COL EPI 119 SECONDS (82-175)
[2023-05-20 10:35] LABS: URINE APPEARANCE Cloudy; URINE BILIRRUBIN Negative (NEGATIVE); URINE BLOOD NHT; URINE COLOR Yellow; URINE GLUCOSE Negative (NEGATIVE); URINE LEUKOCYTE Negative; URINE NITRATE Negative; URINE PROTEIN Negative (NEGATIVE); URINE UROBILINOGEN 0.2 E.U./dl
[2023-05-20 10:40] LABS: URINE BACTERIA 104.5 uL (0.0-1933); URINE EPITHELIAL CELLS 78.9 uL (0.0-38.8); URINE RBC 15.5 uL (0.0-20.8); URINE WBC 13.7 uL (0.0-23.2)
[2023-05-20 10:41] LABS: INR 0.98; PARTIAL THROMBOPLASTIN TIME 25.6 SECONDS (22.0-34.0); PROTHROMBIN TIME 10.3 SECONDS (9.0-11.5)
[2023-05-20 10:46] LABS: ALBUMIN 3.5 gm/dL (3.4-5.0); BILIRUBIN TOTAL 0.35 mg/dL (0.3-1.2); CALCIUM 10.1 mg/dL (8.5-10.1); CREATININE SERUM 0.96 mg/dL (0.55-1.02); GFR 55.24; POTASSIUM 3.86 mEq/L (3.5-5.1); TOTAL PROTEIN 6.5 gm/dL (6.4-8.2)
[2023-05-29] MEDS ORDERED: SYNTHROID100 MCG (14:22)
[2023-05-29] MEDS ORDERED: CATAFLAN PO (14:25)
[2023-05-29] MEDS ORDERED: TOPROL XL100 M1 (14:26)
[2023-05-29] MEDS ORDERED: LASIX20 MG (14:26)
[2023-05-29] MEDS ORDERED: SIMVASTATIN20 MG (14:26)
[2023-05-29] MEDS ORDERED: CARDURA XL4 MG (14:27)
[2023-05-29] MEDS ORDERED: PEPCID AC20 MG (14:27)
[2023-05-29] MEDS ORDERED: LEXAPRO5 MG PO (14:27)
== END 2023-05-20 23:00 | disposition home or self-care (01) ==
LOC: LAB 08:16
PROVIDERS: ATTEND Orthopaedic Surgery
DX: D64.9 Anemia, unspecified (principal); E11.9 Type 2 diabetes mellitus without complications; N39.0 Urinary tract infection, site not specified; D68.8 Other specified coagulation defects; I10 Essential (primary) hypertension

== ENCOUNTER 2023-06-03 07:27 | Inpatient (IN) | payer OTHER ==
[~2023-06-03] VITALS: Ht 162.6 cm; Wt 90.7 kg
[~2023-06-03 07:27] MED LIST changes: +CARDURA XL4 MG; +CATAFLAN PO; +LASIX20 MG; +PEPCID AC20 MG; +SIMVASTATIN20 MG; +SYNTHROID100 MCG; +TOPROL XL100 M1
[2023-06-03] MEDS ORDERED: TRANEXAMIC ACID 100MG/1ML (1000MG) AMPUL IV ONE (09:45)
[2023-06-03] MEDS ORDERED: CEFOXITIN SODIUM 2,000 MG VIAL IV ONE (09:45)
[2023-06-03] MEDS ORDERED: CAMBIA50 MG PO (10:25)
[2023-06-03] MEDS ORDERED: KETOROLAC TROMETHAMINE 60 MG VIAL IM ONE ×2 (11:30→13:30)
[2023-06-03] MEDS ORDERED: VANCOMYCIN HCL 1,000 MG VIAL ONE (11:30)
[2023-06-03] MEDS ORDERED: POLYMYXIN B SULFATE 500,000 U VIAL ONE (11:30)
[2023-06-03] MEDS ORDERED: LIDOCAINE HCL 1%/Epi 20ML VIAL IJ ONE ×2 (11:30→13:30)
[2023-06-03] MEDS ORDERED: BUPIVACAINE HCL/PF 0.5% 30ML ML ONE (11:30)
[2023-06-03] MEDS ORDERED: hydrALAZINE HCL 20 MG VIAL ONE (11:55)
[2023-06-03] MEDS ORDERED: BUPIVACAINE HCL 30 ML VIAL IJ ONE (13:30)
[2023-06-03] MEDS ORDERED: CEFAZOLIN SODIUM 1,000 MG VIAL IV SCH ×2 (13:30→17:00)
[2023-06-03] MEDS ORDERED: MORPHINE SULFATE 2 MG/ML CARTRIDGE IV ONE (13:30)
[2023-06-03] MEDS ORDERED: VANCOMYCIN HCL 1,000 MG VIAL IR ONE (13:30)
[2023-06-03] MEDS ORDERED: POLYMYXIN B SULFATE 500,000 U VIAL IR ONE ×2 (13:30)
[2023-06-03] MEDS ORDERED: hydrALAZINE HCL 20 MG VIAL IV ONE (14:15)
[2023-06-03] MEDS ORDERED: TRAMADOL HCL 50 MG TABLET PO PRN (15:15)
[2023-06-03] MEDS ORDERED: MEPERIDINE HCL/PF 50 MG/ML VIAL IM PRN (15:15)
[2023-06-03] MEDS ORDERED: ONDANSETRON 4 MG TAB.RAPDIS PO PRN (15:15)
[2023-06-03] MEDS ORDERED: ONDANSETRON HCL 2 MG/ML VIAL IV PRN (15:15)
[2023-06-03] MEDS ORDERED: SODIUM CHLORIDE 0.45 % 1,000 ML IV SCH (15:15)
[2023-06-03] MEDS ORDERED: PROMETHAZINE HCL 50 MG/ML AMPUL IM PRN (15:15)
[2023-06-03] MEDS ORDERED: SUGAMMADEX SODIUM 200 MG/2 ML VIAL IV ONE (16:19)
[2023-06-03] MEDS ORDERED: CELECOXIB 200 MG CAPSULE PO SCH (17:00)
[2023-06-03] MEDS ORDERED: ACETAMINOPHEN 325 MG TABLET PO SCH (17:00)
[2023-06-03] MEDS ORDERED: PANTOPRAZOLE SODIUM 40 MG TABLET.DR PO SCH (17:00)
[2023-06-03] MEDS ORDERED: CEFAZOLIN SODIUM 1,000 MG VIAL ONE (17:25)
[2023-06-03] MEDS ORDERED: hydrALAZINE HCL 25 MG TABLET PO PRN (18:45)
[2023-06-03] MEDS ORDERED: KETOROLAC TROMETHAMINE 10 MG TABLET PO SCH (21:00)
[2023-06-04 06:38] LABS: HEMATOCRIT 32.8 % (36.0-45.00); HEMOGLOBIN 10.9 g/dL (12.0-15.00); MEAN CELL VOLUME 84.6 fL (80.00-100.00); MEAN CORPUSCULAR HEMOGLOBIN 28.1 pg (27.00-32.0); MEAN CORPUSCULAR HGB CONC 33.1 g/dl (32.0-36.0); RED BLOOD COUNT 3.88 M/uL (4.00-6.00); RED CELL DISTRIBUTION WIDTH 14.9 % (11.5-14.5)
[2023-06-04 06:50] LABS: PLATELET COUNT 120 K/uL (150-450)
[2023-06-04 07:14] LABS: ALBUMIN 2.9 gm/dL (3.4-5.0); BILIRUBIN TOTAL 0.47 mg/dL (0.3-1.2); CALCIUM 9.2 mg/dL (8.5-10.1); CREATININE SERUM 1.11 mg/dL (0.55-1.02); GFR 46.72; GLOBULINA 2.7 G/DL (2.4-3.5); MAGNESIUM 1.8 mg/dL (1.8-2.4); PHOSPHOROUS 3.9 mg/dL (2.5-4.9); POTASSIUM 4.47 mEq/L (3.5-5.1); TOTAL PROTEIN 5.6 gm/dL (6.4-8.2)
[2023-06-04] MEDS ORDERED: RIVAROXABAN 10 MG TAB PO SCH (09:00)
[2023-06-05 06:54] LABS: HEMATOCRIT 31.1 % (36.0-45.00); HEMOGLOBIN 10.3 g/dL (12.0-15.00); MEAN CELL VOLUME 86.4 fL (80.00-100.00); MEAN CORPUSCULAR HEMOGLOBIN 28.6 pg (27.00-32.0); MEAN CORPUSCULAR HGB CONC 33.1 g/dl (32.0-36.0); RED CELL DISTRIBUTION WIDTH 14.7 % (11.5-14.5)
[2023-06-05 07:14] LABS: PLATELET COUNT 97 K/uL (150-450)
[2023-06-05] MEDS ORDERED: SENNA/DOCUSATE SODIUM 1 TAB TABLET PO SCH (09:00)
[2023-06-05] MEDS ORDERED: NIFEDIPINE 30 MG TAB.SA.OSM PO SCH (14:09)
[2023-06-05] MEDS ORDERED: CLONAZEPAM 1 MG TABLET PO PRN (14:15)
[2023-06-05] MEDS ORDERED: DOXAZOSIN MESYLATE 4 MG TABLET PO SCH (17:00)
[2023-06-05] MEDS ORDERED: Cyanocobalamin/Mecobalamin 1 TAB.SL SL SCH (17:45)
[2023-06-05] MEDS ORDERED: SOD FERRIC GLUC COMPLX/SUCROSE 62.5 MG in 0.9 % SODIUM CHLORIDE 50 ML IV SCH (17:45)
[2023-06-05] MEDS ORDERED: VITAMIN B COMPLEX 1 EACH PO SCH (17:45)
[2023-06-05] MEDS ORDERED: hydrALAZINE HCL 20 MG VIAL IV PRN (18:45)
[2023-06-06] MEDS ORDERED: LEVOTHYROXINE SODIUM 100 MCG TABLET PO SCH (06:00)
[2023-06-07 05:14] LABS: HEMATOCRIT 28.4 % (36.0-45.00); MEAN CELL VOLUME 85.4 fL (80.00-100.00); MEAN CORPUSCULAR HEMOGLOBIN 28.9 pg (27.00-32.0); MEAN CORPUSCULAR HGB CONC 33.8 g/dl (32.0-36.0); RED BLOOD COUNT 3.32 M/uL (4.00-6.00); RED CELL DISTRIBUTION WIDTH 14.9 % (11.5-14.5)
[2023-06-07 05:45] LABS: ALBUMIN 2.6 gm/dL (3.4-5.0); BILIRUBIN TOTAL 0.54 mg/dL (0.3-1.2); CALCIUM 9.1 mg/dL (8.5-10.1); CREATININE SERUM 0.74 mg/dL (0.55-1.02); GFR 74.59; GLOBULINA 2.7 G/DL (2.4-3.5); POTASSIUM 4.11 mEq/L (3.5-5.1); TOTAL PROTEIN 5.3 gm/dL (6.4-8.2)
[2023-06-07 05:52] LABS: HEMOGLOBIN 9.6 g/dL (12.0-15.00); PLATELET COUNT 129 K/uL (150-450)
[2023-06-07] MEDS ORDERED: DOXAZOSIN MESYLATE 4 MG TABLET PO SCH (09:02)
[2023-06-07] MEDS ORDERED: POTASSIUM PHOS,M-BASIC-D-BASIC 18 MM in 0.9 % SODIUM CHLORIDE 250 ML IV ONE (12:00)
[2023-06-07] MEDS ORDERED: NAPH,MB-DB/K PH,MBDB 1 PKT PACKET PO STA (12:22)
[2023-06-07] MEDS ORDERED: DOXAZOSIN MESYLATE PO SCH (17:00)
== END 2023-06-07 16:45 | DRG 468 ==
LOC: EDSTATUS 07:27 → SURH 07:28 → O/R 08:20 → SURG 08:20 → SURH 08:33 → SURG 09:42 → CIR.AMB 11:39 → SURG 06-07 16:45
PROVIDERS: Internal Medicine; ADMIT Orthopaedic Surgery; ATTEND Orthopaedic Surgery
PROC: 0SRC0J9 Replacement of Right Knee Joint with Synthetic Substitute, Cemented, Open Approach (ICD-10-PCS; 2023-06-03)
PROC: 0SPC0JZ Removal of Synthetic Substitute from Right Knee Joint, Open Approach (ICD-10-PCS; principal; 2023-06-03 13:15)
DX: M17.11 Unilateral primary osteoarthritis, right knee (principal); M65.861 Other synovitis and tenosynovitis, right lower leg; E83.59 Other disorders of calcium metabolism; I97.3 Postprocedural hypertension; D64.89 Other specified anemias; E03.9 Hypothyroidism, unspecified

== ENCOUNTER 2023-06-20 07:41 | Outpatient (CLI) | payer OTHER ==
[~2023-06-20 07:41] MED LIST changes: +CAMBIA50 MG PO
[2023-06-20 12:10] LABS: HEMATOCRIT 32.8 % (36.0-45.00); HEMOGLOBIN 10.9 g/dL (12.0-15.00); MEAN CELL VOLUME 85.5 fL (80.00-100.00); MEAN CORPUSCULAR HEMOGLOBIN 28.3 pg (27.00-32.0); MEAN CORPUSCULAR HGB CONC 33.1 g/dl (32.0-36.0); PLATELET COUNT 402 K/uL (150-450); RED BLOOD COUNT 3.84 M/uL (4.00-6.00); RED CELL DISTRIBUTION WIDTH 14.5 % (11.5-14.5)
[2023-06-20 12:29] LABS: ERYTHROCYTE SEDIMENTATION RATE 87 mm/hr
== END 2023-06-20 07:48 | disposition home or self-care (01) ==
LOC: LAB 07:41
PROVIDERS: ATTEND Orthopaedic Surgery
DX: D64.9 Anemia, unspecified (principal); M06.4 Inflammatory polyarthropathy

== ENCOUNTER 2023-10-28 10:27 | Outpatient (CLI) | payer OTHER | END 2023-10-28 10:29 | disposition home or self-care (01) | LOC: NUCLEAR 10:27 | PROVIDERS: ATTEND Orthopaedic Surgery | DX: I87.2 Venous insufficiency (chronic) (peripheral) (principal) ==

== ENCOUNTER 2023-12-05 13:29 | Outpatient (CLI) | payer OTHER | END 2023-12-05 13:36 | disposition home or self-care (01) | LOC: NUCLEAR 13:29 | PROVIDERS: ATTEND Orthopaedic Surgery | DX: M81.0 Age-related osteoporosis without current pathological fracture (principal) ==

== ENCOUNTER → 2024-01-15 | Outpatient (CLI) | payer OTHER | END | disposition home or self-care (01) | LOC: SONOGRAMA 11:22 | PROVIDERS: ATTEND Radiology Diagnostic Radiology | DX: M25.532 Pain in left wrist (principal) ==

== ENCOUNTER 2024-04-23 06:27 | Outpatient (CLI) | payer OTHER ==
[2024-04-23 11:12] LABS: HEMATOCRIT 40.7 % (36.0-45.00); HEMOGLOBIN 13.1 g/dL (12.0-15.00); MEAN CELL VOLUME 88.6 fL (80.00-100.00); MEAN CORPUSCULAR HEMOGLOBIN 28.6 pg (27.00-32.0); MEAN CORPUSCULAR HGB CONC 32.3 g/dl (32.0-36.0); PLATELET COUNT 193 K/uL (150-450); RED BLOOD COUNT 4.59 M/uL (4.00-6.00); RED CELL DISTRIBUTION WIDTH 13.8 % (11.5-14.5)
[2024-04-23 12:05] LABS: ALBUMIN 3.6 gm/dL (3.4-5.0); BILIRUBIN TOTAL 0.48 mg/dL (0.3-1.2); CALCIUM 9.7 mg/dL (8.5-10.1); CHOL HDL RATIO 2.2 (0-5.0); CREATININE SERUM 1.02 mg/dL (0.55-1.02); GFR 51.38; GLOBULINA 3.4 G/DL (2.4-3.5); POTASSIUM 3.94 mEq/L (3.5-5.1); TSH 0.603 uIU/mL (0.358-3.74)
== END 2024-04-23 07:00 | disposition home or self-care (01) ==
LOC: MAMO-SONO 06:27
DX: N64.4 Mastodynia (principal); Z12.31 Encounter for screening mammogram for malignant neoplasm of breast

== ENCOUNTER 2024-05-26 11:07 | Outpatient (CLI) | payer OTHER | END 2024-05-26 11:30 | disposition home or self-care (01) | LOC: TOM 11:07 | PROVIDERS: ATTEND Radiology Diagnostic Radiology | DX: M79.642 Pain in left hand (principal) ==

== ENCOUNTER 2024-06-30 16:13 | Inpatient (IN) | payer OTHER ==
[~2024-06-30] VITALS: Ht 152.4 cm; Wt 113.4 kg
[2024-06-30] MEDS ORDERED: PRILOSEC OTC20 MG PO (16:27)
[2024-06-30] MEDS ORDERED: ALDACTONE25 MG PO (16:27)
[2024-06-30] MEDS ORDERED: NORVASC5 MG PO (16:27)
[2024-06-30] MEDS ORDERED: HYDROCHLOROTHIA25 MG PO (16:28)
--- NOTE | 2024-06-30 16:54 | NUR ---
PTE ALERTA ORIENTADA X3 QUIEN REFIERE VENIR POR DIFICULTAD AL RESPIRAR. SE REALZIA EKG Y SE PRESENTA MD DE TURNO
[2024-06-30] MEDS ORDERED: ASPIRIN 325 MG TABLET PO ONE (17:15)
[2024-06-30] MEDS ORDERED: LEVALBUTEROL HCL 1.25 MG/3 ML SOLUTION IH ONE (17:15)
--- NOTE | 2024-06-30 18:13 | NUR ---
SE ORIENTA PTE SOBRE TX MEDICO EL CUAL REFIERE ENTENDER.SE LE EXTRAEN MUESTRAS BAJO MEDIDAS ASEPTICAS,SE ADMINISTRA MEDICAMENTOS.SE NOTIFICAN ABG Y TERAPIAS RESP A MR MELENDEZ.
[2024-06-30 18:38] LABS: HEMATOCRIT 39.3 % (36.0-45.00); HEMOGLOBIN 12.8 g/dL (12.0-15.00); MEAN CELL VOLUME 88.6 fL (80.00-100.00); MEAN CORPUSCULAR HEMOGLOBIN 28.8 pg (27.00-32.0); MEAN CORPUSCULAR HGB CONC 32.5 g/dl (32.0-36.0); PLATELET COUNT 172 K/uL (150-450); RED BLOOD COUNT 4.43 M/uL (4.00-6.00); RED CELL DISTRIBUTION WIDTH 14.7 % (11.5-14.5)
[2024-06-30 18:57] LABS: D DIMER 1.86 MG/L; PARTIAL THROMBOPLASTIN TIME 25.8 SECONDS (22.0-34.0)
[2024-06-30 19:00] LABS: INR 1.05; PROTHROMBIN TIME 11.4 SECONDS (9.0-11.5)
[2024-06-30 19:02] LABS: ALBUMIN 3.7 gm/dL (3.4-5.0); BILIRUBIN TOTAL 0.28 mg/dL (0.3-1.2); CALCIUM 10.4 mg/dL (8.5-10.1); CREATININE SERUM 1.07 mg/dL (0.55-1.02); GFR 48.62; POTASSIUM 4.41 mEq/L (3.5-5.1); TOTAL PROTEIN 6.7 gm/dL (6.4-8.2)
[2024-06-30] MEDS ORDERED: NITROGLYCERIN IN 5 % DEXTROSE 250 ML IV SCH (19:37)
[2024-06-30] MEDS ORDERED: FUROsemide 20 MG/2 ML VIAL IV ONE (19:45)
[2024-06-30] MEDS ORDERED: IPRATROPIUM BROMIDE 0.5 MG/2.5 ML AMPUL.NEB IH SCH (20:36)
[2024-06-30] MEDS ORDERED: ACETAMINOPHEN 500 MG GEL..CAP PO PRN (20:45)
[2024-06-30] MEDS ORDERED: FUROsemide 20 MG/2 ML VIAL ONE (20:58)
[2024-06-30] MEDS ORDERED: NITROGLYCERIN IN 5 % DEXTROSE 50 MG/250 ML BOTTLE IV ONE (20:59)
[2024-06-30] MEDS ORDERED: ENOXAPARIN SODIUM 80 MG/0.8 ML SYRINGE SUBCUTANEO ONE (20:59)
[2024-06-30] MEDS ORDERED: ENOXAPARIN SODIUM 80 MG/0.8 ML SYRINGE SUBCUTANEO SCH (21:00)
[2024-06-30] MEDS ORDERED: TEMAZEPAM 15 MG CAPSULE PO ONE (22:15)
[2024-06-30 22:18] VITALS: BP 119/70; O2SAT 100
[2024-06-30 23:35] VITALS: BP 116/64; O2SAT 99
[2024-07-01] VITALS (11 sets, daily range): BP systolic 77–132; BP diastolic 48–80; O2SAT 96–100
[2024-07-01] MEDS ORDERED: FUROsemide 20 MG/2 ML VIAL IV SCH ×2 (01:00→21:22)
[2024-07-01] MEDS ORDERED: IPRATROPIUM BROMIDE 0.5 MG/2.5 ML AMPUL.NEB IH ONE (01:29)
[2024-07-01] MEDS ORDERED: LEVOTHYROXINE SODIUM 100 MCG TABLET PO SCH (06:00)
[2024-07-01 07:22] LABS: CHOL HDL RATIO 2.3 (0-5.0); TSH 0.935 uIU/mL (0.358-3.74)
[2024-07-01] MEDS ORDERED: NITROGLYCERIN IN 5 % DEXTROSE 250 ML IV SCH (09:00)
[2024-07-01] MEDS ORDERED: METOPROLOL SUCCINATE 25 MG TAB.SR.24H PO SCH (09:00)
[2024-07-01] MEDS ORDERED: ISOSORBIDE MONONITRATE 30 MG TABLET PO SCH (10:28)
[2024-07-01] MEDS ORDERED: FUROsemide 20 MG TABLET PO SCH (10:28)
[2024-07-01] MEDS ORDERED: SIMVASTATIN 40 MG TABLET PO SCH (17:00)
[2024-07-01] MEDS ORDERED: AMIODARONE HCL 200 MG TABLET PO SCH (21:25)
[2024-07-01] MEDS ORDERED: FUROsemide 20 MG/2 ML VIAL ONE (21:59)
[2024-07-01] MEDS ORDERED: AMIODARONE HCL 200 MG TABLET ONE (21:59)
[2024-07-02] MEDS ORDERED: CLONAZEPAM 0.5 MG TABLET PO SCH (00:15)
[2024-07-02 02:48] VITALS: BP 150/80
[2024-07-02 06:47] LABS: ALBUMIN 3.6 gm/dL (3.4-5.0); BILIRUBIN TOTAL 0.42 mg/dL (0.3-1.2); CALCIUM 10.7 mg/dL (8.5-10.1); CREATININE SERUM 1.34 mg/dL (0.55-1.02); GFR 37.5; GLOBULINA 2.8 G/DL (2.4-3.5); POTASSIUM 4.26 mEq/L (3.5-5.1); TOTAL PROTEIN 6.4 gm/dL (6.4-8.2)
[2024-07-02] MEDS ORDERED: AMIODARONE HCL200 MG PO (08:40)
[2024-07-02] MEDS ORDERED: ISOSORBIDE MONO30 MG PO (08:40)
[2024-07-02] MEDS ORDERED: TOPROL XL25 M1 PO (08:40)
[2024-07-02] MEDS ORDERED: SIMVASTATIN40 MG PO (08:40)
[2024-07-02] MEDS ORDERED: SYNTHROID100 MCG PO (08:41)
[2024-07-02] MEDS ORDERED: PEPCID AC20 MG PO (08:42)
[2024-07-02] MEDS ORDERED: BUMETANIDE1 MG PO (08:44)
[2024-07-02] MEDS ORDERED: METOPROLOL SUCCINATE 25 MG TAB.SR.24H PO SCH (09:00)
[2024-07-02 09:02] VITALS: BP 86/56; O2SAT 95
[2024-07-02] MEDS ORDERED: DERMACINRX THE135 GM TOP (09:43)
== END 2024-07-02 11:38 | disposition home or self-care (01) | DRG 292 ==
LOC: ER 16:14 → SEC-K 07-01 00:34 → MEDJ 07-01 00:34 → ICU 07-01 00:34 → MEDJ 07-01 01:33 → ICU 07-01 03:16 → MEDI 07-01 13:38
PROVIDERS: General Practice; Internal Medicine; ADMIT Internal Medicine; ATTEND Internal Medicine
PROC: BB24ZZZ Computerized Tomography (CT Scan) of Bilateral Lungs (ICD-10-PCS; principal; 2024-07-01)
PROC: B246ZZZ Ultrasonography of Right and Left Heart (ICD-10-PCS; 2024-07-01)
PROC: 4A12X4Z Monitoring of Cardiac Electrical Activity, External Approach (ICD-10-PCS; 2024-07-01)
PROC: 3E0F7GC Introduction of Other Therapeutic Substance into Respiratory Tract, Via Natural or Artificial Opening (ICD-10-PCS; 2024-07-01)
DX: I11.0 Hypertensive heart disease with heart failure (principal); I48.20 Chronic atrial fibrillation, unspecified; I45.10 Unspecified right bundle-branch block; I50.9 Heart failure, unspecified

== ENCOUNTER 2024-07-03 10:38 | Outpatient (CLI) | payer OTHER ==
[2024-07-03 12:59] LABS: ALBUMIN 3.8 gm/dL (3.4-5.0); BILIRUBIN TOTAL 0.56 mg/dL (0.3-1.2); CALCIUM 10.1 mg/dL (8.5-10.1); CREATININE SERUM 1.29 mg/dL (0.55-1.02); GFR 39.18; GLOBULINA 3.2 G/DL (2.4-3.5); PHOSPHOROUS 2.4 mg/dL (2.5-4.9); POTASSIUM 3.85 mEq/L (3.5-5.1)
== END 2024-07-03 10:50 | disposition home or self-care (01) ==
LOC: LAB 10:38
PROVIDERS: ATTEND Orthopaedic Surgery
DX: E55.9 Vitamin D deficiency, unspecified (principal); M85.9 Disorder of bone density and structure, unspecified; E56.1 Deficiency of vitamin K; E21.3 Hyperparathyroidism, unspecified; E88.89 Other specified metabolic disorders; M81.8 Other osteoporosis without current pathological fracture

== ENCOUNTER → 2024-07-03 | Outpatient (CLI) | payer OTHER ==
[~2024-07-03] MED LIST changes: +AMIODARONE HCL200 MG PO; +BUMETANIDE1 MG PO; +DERMACINRX THE135 GM TOP; +HYDROCHLOROTHIA25 MG PO; +ISOSORBIDE MONO30 MG PO; +NORVASC5 MG PO; +PRILOSEC OTC20 MG PO; +SIMVASTATIN40 MG PO; +SYNTHROID100 MCG PO
== END | disposition home or self-care (01) ==
LOC: RAD 10:05
PROVIDERS: ATTEND Orthopaedic Surgery
DX: E56.1 Deficiency of vitamin K (principal); E55.9 Vitamin D deficiency, unspecified; M85.9 Disorder of bone density and structure, unspecified; E21.3 Hyperparathyroidism, unspecified; M81.8 Other osteoporosis without current pathological fracture; E88.9 Metabolic disorder, unspecified

== ENCOUNTER 2024-07-21 09:50 | Outpatient (CLI) | payer OTHER ==
[2024-07-21 10:58] LABS: PH,URINE 5.5 (5.0-8.0); URINE APPEARANCE Clear; URINE BILIRRUBIN Negative (NEGATIVE); URINE BLOOD NHT; URINE COLOR Yellow; URINE GLUCOSE Negative (NEGATIVE); URINE KETONE Negative (NEGATIVE); URINE LEUKOCYTE Negative; URINE NITRATE Negative; URINE PROTEIN Negative (NEGATIVE); URINE UROBILINOGEN 0.2 E.U./dl
[2024-07-21 11:02] LABS: URINE EPITHELIAL CELLS 28.3 uL (0.0-38.8); URINE RBC 25.6 uL (0.0-20.8); URINE WBC 13.6 uL (0.0-23.2)
[2024-07-21 11:03] LABS: HEMATOCRIT 46.3 % (34.1-44.9); HEMOGLOBIN 14.6 g/dL (11.2-15.7)
[2024-07-21 11:04] LABS: BASO % 1.1 % (0.1-1.2); EOS # 0.05 (0.04-0.54); EOS % 0.6 % (0.7-7.0); LYMPH # 1.88 (1.18-3.74); LYMPH % 23.7 % (19.3-53.1); MEAN CORPUSCULAR HEMOGLOBIN 28.6 pg (25.6-32.2); MONO # 0.81 (0.24-0.82); MONO % 10.2 % (4.7-12.5); NEUT # 5.02 (1.56-6.13); NEUT % 63.5 % (34.0-71.1); PLATELET COUNT 248 K/uL (163-369); RED CELL DISTRIBUTION WIDTH 13.4 % (11.6-14.4)
[2024-07-21 11:53] LABS: URINE CRYSTALS MODERATE /HPF
[2024-07-21 12:03] LABS: ALBUMIN 4.3 gm/dL (3.4-5.0); BILIRUBIN TOTAL 0.35 mg/dL (0.3-1.2); CALCIUM 10.4 mg/dL (8.5-10.1); CHOL HDL RATIO 1.9 (0-5.0); CREATININE SERUM 1.51 mg/dL (0.55-1.02); GFR 32.67; GLOBULINA 3.6 G/DL (2.4-3.5); POTASSIUM 4.26 mEq/L (3.5-5.1); TOTAL PROTEIN 7.9 gm/dL (6.4-8.2); TSH 0.375 uIU/mL (0.358-3.74)
== END 2024-07-21 14:20 | disposition home or self-care (01) ==
LOC: LAB 09:50
PROVIDERS: ATTEND Internal Medicine Cardiovascular Disease
DX: D64.9 Anemia, unspecified (principal); N39.0 Urinary tract infection, site not specified; R10.9 Unspecified abdominal pain; E03.9 Hypothyroidism, unspecified; E78.5 Hyperlipidemia, unspecified; E11.9 Type 2 diabetes mellitus without complications; I50.22 Chronic systolic (congestive) heart failure

== ENCOUNTER 2024-08-20 07:45 | Outpatient (CLI) | payer OTHER | END 2024-08-20 11:20 | disposition home or self-care (01) | LOC: LAB 07:45 | PROVIDERS: ATTEND Orthopaedic Surgery | DX: E55.9 Vitamin D deficiency, unspecified (principal); M85.9 Disorder of bone density and structure, unspecified; E56.1 Deficiency of vitamin K ==

== ENCOUNTER 2024-09-01 07:26 | Outpatient (CLI) | payer OTHER ==
[2024-09-01 10:18] LABS: URINE APPEARANCE Clear; URINE BILIRRUBIN Negative (NEGATIVE); URINE BLOOD Negative; URINE COLOR Yellow; URINE GLUCOSE Negative (NEGATIVE); URINE KETONE Negative (NEGATIVE); URINE LEUKOCYTE Negative; URINE NITRATE Negative; URINE PROTEIN Negative (NEGATIVE); URINE UROBILINOGEN 0.2 E.U./dl
[2024-09-01 10:19] LABS: URINE BACTERIA 31.2 uL (0.0-1933); URINE EPITHELIAL CELLS 13.2 uL (0.0-38.8); URINE RBC 3.2 uL (0.0-20.8); URINE WBC 3.2 uL (0.0-23.2)
[2024-09-01 11:56] LABS: URINE CAST 0.00 uL (0.0-1.40)
== END 2024-09-01 11:58 | disposition home or self-care (01) ==
LOC: LAB 07:26
PROVIDERS: ATTEND Orthopaedic Surgery
DX: D64.9 Anemia, unspecified (principal); E88.9 Metabolic disorder, unspecified; D68.8 Other specified coagulation defects; N39.0 Urinary tract infection, site not specified; Z22.322 Carrier or suspected carrier of Methicillin resistant Staphylococcus aureus; E11.9 Type 2 diabetes mellitus without complications

== ENCOUNTER 2024-09-08 07:35 | Outpatient (CLI) | payer OTHER ==
[2024-09-08 13:26] LABS: URINE APPEARANCE Clear; URINE BILIRRUBIN Negative (NEGATIVE); URINE BLOOD Negative; URINE COLOR Dark Yellow; URINE GLUCOSE Negative (NEGATIVE); URINE KETONE Negative (NEGATIVE); URINE LEUKOCYTE Trace; URINE NITRATE Positive; URINE PROTEIN Trace (NEGATIVE); URINE UROBILINOGEN 1.0 E.U./dl
[2024-09-08 13:30] LABS: URINE BACTERIA 14.3 uL (0.0-1933); URINE EPITHELIAL CELLS 25.0 uL (0.0-38.8); URINE RBC 24.6 uL (0.0-20.8); URINE WBC 3.3 uL (0.0-23.2)
[2024-09-08 13:31] LABS: URINE CAST 0.43 uL (0.0-1.40)
== END 2024-09-08 07:43 | disposition home or self-care (01) ==
LOC: LAB 07:35
DX: N39.0 Urinary tract infection, site not specified (principal)

== ENCOUNTER → 2024-09-11 | Outpatient (CLI) | payer OTHER | END | disposition home or self-care (01) | LOC: TOM 06:29 | PROVIDERS: ATTEND Internal Medicine | DX: R10.30 Lower abdominal pain, unspecified (principal) ==

== ENCOUNTER 2024-10-05 10:28 | Outpatient (CLI) | payer OTHER ==
[2024-10-05 11:18] LABS: URINE APPEARANCE Clear; URINE BILIRRUBIN Negative (NEGATIVE); URINE BLOOD Negative; URINE COLOR Yellow; URINE GLUCOSE Negative (NEGATIVE); URINE KETONE Negative (NEGATIVE); URINE LEUKOCYTE Negative; URINE NITRATE Negative; URINE PROTEIN Negative (NEGATIVE); URINE UROBILINOGEN 0.2 E.U./dl
[2024-10-05 11:21] LABS: BASO % 1.0 % (0.1-1.2); EOS # 0.10 (0.04-0.54); EOS % 2.1 % (0.7-7.0); LYMPH # 1.31 (1.18-3.74); LYMPH % 27.2 % (19.3-53.1); MEAN PLATELET VOLUME 12.20 fl (9.4-12.4); MONO # 0.54 (0.24-0.82); MONO % 11.2 % (4.7-12.5); NEUT # 2.80 (1.56-6.13); NEUT % 58.1 % (34.0-71.1); RED CELL DISTRIBUTION WIDTH 14.1 % (11.6-14.4)
[2024-10-05 11:24] LABS: URINE BACTERIA 114.0 uL (0.0-1933); URINE EPITHELIAL CELLS 11.9 uL (0.0-38.8); URINE RBC 12.3 uL (0.0-20.8); URINE WBC 5.6 uL (0.0-23.2)
[2024-10-05 11:31] LABS: CREATININE URINE RANDOM 161.0 MG/DL (30-125)
[2024-10-05 11:47] LABS: ALT/SGPT 26.0 U/L (12-78); AST/SGOT 12.0 U/L (15-37); BILIRUBIN TOTAL 0.61 mg/dL (0.3-1.2); BILIRUBIN,CONJUGATED 0.17 mg/dL (0.0-0.2); BUN CREA RATIO 16.0 (7.0-25.0); CHOL HDL RATIO 1.7 (0-5.0); CREATININE SERUM 1.12 mg/dL (0.55-1.02); GFR 46.02; GLUCOSE FASTING 98.0 mg/dL (65-100); HDL 69.0 mg/dl (40-60); LDL 34.0 mg/dl (0-130); OSMOLALITY SERUM 287.0 MOSM/KG (275-295); TSH 0.986 uIU/mL (0.358-3.74); VLDL 16.0 (0-39)
[2024-10-05 11:51] LABS: URINE CAST 0.00 uL (0.0-1.40)
[2024-10-05 11:52] LABS: T4 FREE 1.57 NG/ML (0.76-1.46)
[2024-10-05 15:29] LABS: VITAMIN D3 25 HYDROXY 26.43 ng/ml (30-120)
== END 2024-10-05 10:35 | disposition home or self-care (01) ==
LOC: LAB 10:28
DX: E78.5 Hyperlipidemia, unspecified (principal); D64.9 Anemia, unspecified; N39.0 Urinary tract infection, site not specified; R80.9 Proteinuria, unspecified; R10.9 Unspecified abdominal pain; E11.65 Type 2 diabetes mellitus with hyperglycemia; N18.9 Chronic kidney disease, unspecified; K76.0 Fatty (change of) liver, not elsewhere classified; E03.9 Hypothyroidism, unspecified; R94.6 Abnormal results of thyroid function studies; E53.8 Deficiency of other specified B group vitamins; E55.9 Vitamin D deficiency, unspecified

== ENCOUNTER 2024-10-07 18:37 | Emergency (ER) | payer OTHER ==
[~2024-10-07] VITALS: Ht 162.6 cm; Wt 117.9 kg
[2024-10-07 20:17] LABS: BASO % 0.9 % (0.1-1.2); EOS # 0.11 (0.04-0.54); EOS % 2.0 % (0.7-7.0); LYMPH # 1.43 (1.18-3.74); LYMPH % 26.4 % (19.3-53.1); MEAN PLATELET VOLUME 11.90 fl (9.4-12.4); MONO # 0.67 (0.24-0.82); MONO % 12.4 % (4.7-12.5); NEUT # 3.14 (1.56-6.13); NEUT % 58.1 % (34.0-71.1); RED CELL DISTRIBUTION WIDTH 14.1 % (11.6-14.4)
== END 2024-10-07 21:19 | disposition home or self-care (01) ==
LOC: ER 18:37
PROVIDERS: General Practice
DX: R00.2 Palpitations (principal); R07.9 Chest pain, unspecified; Z88.0 Allergy status to penicillin; I10 Essential (primary) hypertension

== ENCOUNTER 2024-10-20 08:22 | Outpatient (CLI) | payer OTHER ==
[2024-10-20 08:55] LABS: BASO % 0.8 % (0.1-1.2); EOS # 0.19 (0.04-0.54); EOS % 3.7 % (0.7-7.0); LYMPH # 1.60 (1.18-3.74); LYMPH % 31.4 % (19.3-53.1); MEAN PLATELET VOLUME 12.00 fl (9.4-12.4); MONO # 0.63 (0.24-0.82); NEUT # 2.62 (1.56-6.13); NEUT % 51.3 % (34.0-71.1); RED CELL DISTRIBUTION WIDTH 14.0 % (11.6-14.4)
[2024-10-20 08:56] LABS: MONO % 12.4 % (4.7-12.5)
[2024-10-20 08:57] LABS: URINE APPEARANCE Clear; URINE BILIRRUBIN Negative (NEGATIVE); URINE BLOOD Negative; URINE COLOR Yellow; URINE GLUCOSE Negative (NEGATIVE); URINE KETONE Negative (NEGATIVE); URINE LEUKOCYTE Negative; URINE NITRATE Negative; URINE PROTEIN Negative (NEGATIVE); URINE UROBILINOGEN 0.2 E.U./dl
[2024-10-20 09:01] LABS: URINE BACTERIA 142.7 uL (0.0-1933); URINE CAST 0.00 uL (0.0-1.40); URINE EPITHELIAL CELLS 9.0 uL (0.0-38.8); URINE RBC 24.4 uL (0.0-20.8); URINE WBC 3.0 uL (0.0-23.2)
[2024-10-20 09:54] LABS: ALT/SGPT 26.0 U/L (12-78); AST/SGOT 19.0 U/L (15-37); BILIRUBIN TOTAL 0.44 mg/dL (0.3-1.2); BUN CREA RATIO 19.0 (7.0-25.0); CHOL HDL RATIO 1.8 (0-5.0); CREATININE SERUM 1.19 mg/dL (0.55-1.02); GFR 42.91; GLOBULINA 2.7 G/DL (2.4-3.5); GLUCOSE FASTING 104.0 mg/dL (65-100); HDL 67.0 mg/dl (40-60); LDL 33.0 mg/dl (0-130); OSMOLALITY SERUM 295.0 MOSM/KG (275-295); VLDL 22.0 (0-39)
== END 2024-10-20 14:32 | disposition home or self-care (01) ==
LOC: LAB 08:22
PROVIDERS: ATTEND Internal Medicine Cardiovascular Disease
DX: D64.9 Anemia, unspecified (principal); N39.0 Urinary tract infection, site not specified; R10.9 Unspecified abdominal pain; E78.5 Hyperlipidemia, unspecified; E11.9 Type 2 diabetes mellitus without complications

== ENCOUNTER 2024-11-27 07:27 | Outpatient (CLI) | payer OTHER ==
[2024-11-27 09:34] LABS: BASO % 1.2 % (0.1-1.2); EOS # 0.18 (0.04-0.54); EOS % 3.1 % (0.7-7.0); LYMPH # 1.52 (1.18-3.74); LYMPH % 26.3 % (19.3-53.1); MEAN PLATELET VOLUME 11.90 fl (9.4-12.4); MONO # 0.77 (0.24-0.82); NEUT # 3.22 (1.56-6.13); NEUT % 55.6 % (34.0-71.1); RED CELL DISTRIBUTION WIDTH 13.2 % (11.6-14.4); URINE APPEARANCE Clear; URINE BILIRRUBIN Negative (NEGATIVE); URINE BLOOD Negative; URINE COLOR Yellow; URINE GLUCOSE Negative (NEGATIVE); URINE KETONE Negative (NEGATIVE); URINE LEUKOCYTE Negative; URINE NITRATE Negative; URINE PROTEIN Negative (NEGATIVE); URINE UROBILINOGEN 0.2 E.U./dl
[2024-11-27 09:35] LABS: MONO % 13.3 % (4.7-12.5)
[2024-11-27 09:37] LABS: URINE BACTERIA 209.9 uL (0.0-1933); URINE EPITHELIAL CELLS 26.4 uL (0.0-38.8); URINE RBC 19.2 uL (0.0-20.8); URINE WBC 6.7 uL (0.0-23.2)
[2024-11-27 09:57] LABS: CREATININE URINE RANDOM 143.0 MG/DL (30-125)
[2024-11-27 10:20] LABS: ALT/SGPT 29.0 U/L (12-78); AST/SGOT 21.0 U/L (15-37); BILIRUBIN TOTAL 0.51 mg/dL (0.3-1.2); BUN CREA RATIO 16.0 (7.0-25.0); CHOL HDL RATIO 2.0 (0-5.0); CREATININE SERUM 1.1 mg/dL (0.55-1.02); GFR 46.98; GLOBULINA 2.8 G/DL (2.4-3.5); GLUCOSE FASTING 105.0 mg/dL (65-100); HDL 80.0 mg/dl (40-60); LDL 59.0 mg/dl (0-130); OSMOLALITY SERUM 287.0 MOSM/KG (275-295); T4 FREE 1.28 NG/ML (0.76-1.46); TSH 1.44 uIU/mL (0.358-3.74); VLDL 19.0 (0-39)
[2024-11-27 10:49] LABS: URINE CAST 0.00 uL (0.0-1.40)
[2024-11-27 11:00] LABS: VITAMIN D3 25 HYDROXY 53.21 ng/ml (30-120)
== END 2024-11-27 23:00 | disposition home or self-care (01) ==
LOC: LAB 07:27
PROVIDERS: ATTEND Internal Medicine
DX: E78.1 Pure hyperglyceridemia (principal); D50.9 Iron deficiency anemia, unspecified; D51.9 Vitamin B12 deficiency anemia, unspecified; E55.9 Vitamin D deficiency, unspecified; D64.9 Anemia, unspecified; N39.0 Urinary tract infection, site not specified; R80.9 Proteinuria, unspecified; E11.9 Type 2 diabetes mellitus without complications; E78.5 Hyperlipidemia, unspecified; E79.0 Hyperuricemia without signs of inflammatory arthritis and tophaceous disease; E03.8 Other specified hypothyroidism; E66.2 Morbid (severe) obesity with alveolar hypoventilation; I11.9 Hypertensive heart disease without heart failure; I48.0 Paroxysmal atrial fibrillation

== ENCOUNTER 2025-01-13 08:00 | Outpatient (CLI) | payer OTHER ==
[2025-01-14 10:51] LABS: BASO % 0.6 % (0.1-1.2); EOS # 0.15 (0.04-0.54); EOS % 3.1 % (0.7-7.0); LYMPH # 1.76 (1.18-3.74); LYMPH % 36.0 % (19.3-53.1); MEAN PLATELET VOLUME 11.80 fl (9.4-12.4); MONO # 0.56 (0.24-0.82); MONO % 11.5 % (4.7-12.5); NEUT # 2.37 (1.56-6.13); NEUT % 48.4 % (34.0-71.1); RED CELL DISTRIBUTION WIDTH 13.8 % (11.6-14.4)
[2025-01-14 11:26] LABS: ALT/SGPT 25.0 U/L (12-78); AST/SGOT 15.0 U/L (15-37); BILIRUBIN TOTAL 0.42 mg/dL (0.3-1.2); BUN CREA RATIO 17.0 (7.0-25.0); CHOL HDL RATIO 1.7 (0-5.0); CREATININE SERUM 1.03 mg/dL (0.55-1.02); GFR 50.69; GLOBULINA 3.0 G/DL (2.4-3.5); GLUCOSE FASTING 112.0 mg/dL (65-100); HDL 73.0 mg/dl (40-60); LDL 38.0 mg/dl (0-130); OSMOLALITY SERUM 287.0 MOSM/KG (275-295); VLDL 14.0 (0-39)
== END 2025-01-13 08:01 | disposition home or self-care (01) ==
LOC: LAB 08:00
PROVIDERS: ATTEND Internal Medicine
DX: D64.9 Anemia, unspecified (principal); R10.9 Unspecified abdominal pain; E78.5 Hyperlipidemia, unspecified; E11.9 Type 2 diabetes mellitus without complications

== ENCOUNTER 2025-02-23 10:57 | Outpatient (CLI) | payer OTHER ==
[2025-02-23 11:36] LABS: URINE APPEARANCE Clear; URINE BILIRRUBIN Negative (NEGATIVE); URINE BLOOD Negative; URINE COLOR Yellow; URINE GLUCOSE Negative (NEGATIVE); URINE KETONE Negative (NEGATIVE); URINE LEUKOCYTE Trace; URINE NITRATE Negative; URINE PROTEIN Negative (NEGATIVE); URINE UROBILINOGEN 0.2 E.U./dl
[2025-02-23 11:37] LABS: URINE BACTERIA 92.6 uL (0.0-1933); URINE EPITHELIAL CELLS 13.6 uL (0.0-38.8); URINE RBC 20.3 uL (0.0-20.8); URINE WBC 3.5 uL (0.0-23.2)
[2025-02-23 11:52] LABS: URINE CAST 0.00 uL (0.0-1.40)
[2025-02-23 12:53] LABS: BUN CREA RATIO 24.0 (7.0-25.0); CREATININE SERUM 1.1 mg/dL (0.55-1.02); GFR 46.98; GLUCOSE FASTING 113.0 mg/dL (65-100); OSMOLALITY SERUM 292.0 MOSM/KG (275-295)
== END 2025-02-23 11:04 | disposition home or self-care (01) ==
LOC: LAB 10:57
PROVIDERS: ATTEND Specialist
DX: N39.0 Urinary tract infection, site not specified (principal); R53.0 Neoplastic (malignant) related fatigue

== ENCOUNTER 2025-02-26 09:03 | Outpatient (CLI) | payer OTHER ==
[2025-02-26 10:14] LABS: BASO % 1.2 % (0.1-1.2); EOS # 0.21 (0.04-0.54); EOS % 5.0 % (0.7-7.0); LYMPH # 1.31 (1.18-3.74); LYMPH % 31.0 % (19.3-53.1); MEAN PLATELET VOLUME 12.40 fl (9.4-12.4); MONO # 0.69 (0.24-0.82); NEUT # 1.95 (1.56-6.13); NEUT % 46.0 % (34.0-71.1); RED CELL DISTRIBUTION WIDTH 14.3 % (11.6-14.4)
[2025-02-26 10:21] LABS: MONO % 16.3 % (4.7-12.5)
[2025-02-26 10:59] LABS: ALT/SGPT 33.0 U/L (12-78); AST/SGOT 16.0 U/L (15-37); BILIRUBIN TOTAL 0.35 mg/dL (0.3-1.2); BUN CREA RATIO 18.0 (7.0-25.0); CREATININE SERUM 1.15 mg/dL (0.55-1.02); GFR 44.63; GLOBULINA 3.1 G/DL (2.4-3.5); GLUCOSE FASTING 99.0 mg/dL (65-100); OSMOLALITY SERUM 292.0 MOSM/KG (275-295)
== END 2025-02-26 09:04 | disposition home or self-care (01) ==
LOC: LAB 09:03
DX: R32 Unspecified urinary incontinence (principal)